=== PATIENT | female | born 1945 | race Caucasian/White ===

== ENCOUNTER 2022-06-03 09:49 | Day surgery (SDC) | payer MEDICARE ==
[2022-06-03] MEDS ORDERED: Propofol 200 MG/20 ML SDV ONE (11:20)
[2022-06-03] MEDS ORDERED: fentaNYL 100 MCG/2 ML SDV ONE (11:20)
[2022-06-03] MEDS ORDERED: Dextrose 5%-Lactated Ringers 1,000 ML IV SCH (11:30)
[2022-06-03 14:20] VITALS: BP 155/66; PULSE 49
== END 2022-06-03 14:59 | disposition home or self-care (01) ==
LOC: JP.SDS 09:49
PROVIDERS: ATTEND Surgery
DX: K31.1 Adult hypertrophic pyloric stenosis (principal); K44.9 Diaphragmatic hernia without obstruction or gangrene; I50.9 Heart failure, unspecified; I13.0 Hypertensive heart and chronic kidney disease with heart failure and stage 1 through stage 4 chronic kidney disease, or unspecified chronic kidney disease; N18.9 Chronic kidney disease, unspecified; E03.9 Hypothyroidism, unspecified; R73.03 Prediabetes; Z98.890 Other specified postprocedural states
CPT/HCPCS: 43239; 87081; J2704; J3010; J7121

== ENCOUNTER 2022-06-13 07:03 | Inpatient (IN) | payer MEDICARE ==
[~2022-06-13 07:03] MED LIST: Bupivacaine 0.5% 50 ML MDV ONE; Lidocaine 1% with EPINEPHrine 1:100,000 50 ML MDV ONE; Meropenem 500 MG SDV ONE
[2022-06-13] MEDS ORDERED: fentaNYL 250 MCG/5 ML SDV ONE ×2 (07:09→14:33)
[2022-06-13] MEDS ORDERED: Succinylcholine 200 MG/10 ML MDV ONE (07:10)
[2022-06-13] MEDS ORDERED: Dexamethasone 4 MG/ML SDV ONE (07:10)
[2022-06-13] MEDS ORDERED: Rocuronium 50 MG/5 ML Vial ONE (07:10)
[2022-06-13] MEDS ORDERED: Ondansetron 4 MG/2 ML SDV ONE (07:10)
[2022-06-13] MEDS ORDERED: Propofol 200 MG/20 ML SDV ONE (07:10)
[2022-06-13] MEDS ORDERED: Neostigmine Methylsulfate 1 MG/ML 5 ML Syringe ONE (07:10)
[2022-06-13] MEDS ORDERED: Glycopyrrolate 0.2 MG/ML 5 ML MDV ONE (07:10)
[2022-06-13] MEDS ORDERED: Acetaminophen 500 MG Tab PO ONE (07:30)
[2022-06-13] MEDS ORDERED: Celecoxib 200 MG Cap PO ONE (07:30)
[2022-06-13] MEDS ORDERED: Scopolamine 1.5 MG Transdermal Patch TOP SCH (07:30)
[2022-06-13] MEDS ORDERED: Dextrose 5%-Lactated Ringers 1,000 ML IV SCH (08:30)
[2022-06-13] MEDS ORDERED: cefOXitin 2 GM in Sodium Chloride 0.9% 50 ML IV ONE (09:00)
[2022-06-13] MEDS ORDERED: Ketamine 13 MG in Sodium Chloride 0.9% 19.87 ML IV SCH (09:15)
[2022-06-13] MEDS ORDERED: Ketamine 500 MG/5 ML MDV IV SCH (09:15)
[2022-06-13] MEDS ORDERED: diphenhydrAMINE 50 MG/ML SDV IVPUSH PRN ×2 (12:49→16:00)
[2022-06-13] MEDS ORDERED: HYDROmorphone/Normal Saline 6 MG/30 ML PCA Vial IV PRN (12:49)
[2022-06-13] MEDS ORDERED: Ondansetron 4 MG/2 ML SDV IVPUSH PRN (12:49)
[2022-06-13] MEDS ORDERED: diphenhydrAMINE 25 MG Cap PO PRN (12:49)
[2022-06-13] MEDS ORDERED: Naloxone 0.4 MG/ML SDV IVPUSH PRN (12:49)
[2022-06-13] MEDS ORDERED: Naloxone 0.4 MG/ML SDV IV PRN (14:00)
[2022-06-13] MEDS ORDERED: Labetalol 20 MG/4 ML Syringe ONE (14:23)
[2022-06-13] MEDS ORDERED: Cyclobenzaprine 10 MG Tab PO PRN (15:38)
[2022-06-13] MEDS ORDERED: hydrOXYzine HCL 100 MG/2 ML SDV IM PRN (16:00)
[2022-06-13] MEDS ORDERED: Labetalol 20 MG/4 ML Syringe IVPUSH PRN (16:00)
[2022-06-13] MEDS ORDERED: Acetaminophen 500 MG Tab PO PRN (16:00)
[2022-06-13] MEDS ORDERED: Metoclopramide 10 MG/2 ML SDV IVPUSH PRN (16:00)
[2022-06-13] MEDS ORDERED: Pantoprazole 40 MG Vial IV SCH (17:00)
[2022-06-13] MEDS: Acetaminophen 500 MG Tab PO SCH ×2 (17:20→17:54)
[2022-06-13] MEDS: cefOXitin 2 GM in Sodium Chloride 0.9% 50 ML IV SCH (17:22)
[2022-06-13] MEDS: MVI, Adult with Vitamin K 10 ML, Thiamine 200 MG, Zinc/Copper/Manganese/Selenium 1 ML i... IV SCH ×4 (17:22)
[2022-06-13] MEDS: Famotidine 20 MG/2 ML SDV IV SCH (17:22)
[2022-06-13] MEDS: Heparin Sodium 5,000 Units/ML Vial SUBCUT SCH (20:33)
[2022-06-13] MEDS: atorvaSTATin 10 MG Tab PO SCH (20:34)
[2022-06-13] MEDS: Melatonin 3 MG Tab PO SCH (20:35)
[2022-06-13] MEDS: Atenolol 25 MG Tab PO SCH (20:35)
[2022-06-13] MEDS: amLODIPine 5 MG Tab PO SCH (20:35)
[2022-06-14] MEDS: cefOXitin 2 GM in Sodium Chloride 0.9% 50 ML IV SCH ×4 (00:04→18:13)
[2022-06-14] MEDS: Acetaminophen 500 MG Tab PO SCH ×3 (00:12→18:12)
[2022-06-14] MEDS: Dextrose 5%-Lactated Ringers 1,000 ML IV SCH ×2 (01:44→12:35)
[2022-06-14] MEDS: Lactated Ringers 500 ML IV SCH ×2 (02:47→16:48)
[2022-06-14] MEDS ORDERED: Iopamidol 612 MG/ML 50 ML SDV PO STA (04:19)
[2022-06-14 05:13] LABS: ESTIMATED GFR 33 mL/min (>60)
[2022-06-14] MEDS ORDERED: Lactated Ringers 500 ML IV SCH ×2 (05:34→16:30)
[2022-06-14] MEDS: Levothyroxine 50 MCG Tab PO SCH (07:52)
[2022-06-14] MEDS ORDERED: Lactated Ringers 500 ML IV ONE ×2 (08:00→19:45)
[2022-06-14] MEDS: Allopurinol 100 MG Tab PO SCH (08:45)
[2022-06-14] MEDS: Heparin Sodium 5,000 Units/ML Vial SUBCUT SCH ×2 (08:55→20:02)
[2022-06-14] MEDS ORDERED: Celecoxib 200 MG Cap PO SCH (09:00)
[2022-06-14] MEDS: Magnesium Sulfate/Water 2 GM/50 ML BAG IV SCH ×3 (09:20→21:15)
[2022-06-14] MEDS: SCOPOLAMINE PATCH CHECK TOP SCH (13:27)
[2022-06-14] MEDS: Atenolol 25 MG Tab PO SCH ×2 (13:28→21:17)
[2022-06-14] MEDS: Famotidine 20 MG/2 ML SDV IV SCH (16:03)
[2022-06-14] MEDS: MVI, Adult with Vitamin K 10 ML, Thiamine 200 MG, Zinc/Copper/Manganese/Selenium 1 ML i... IV SCH ×4 (18:13)
[2022-06-14] MEDS: atorvaSTATin 10 MG Tab PO SCH (21:15)
[2022-06-14] MEDS: Melatonin 3 MG Tab PO SCH (21:16)
[2022-06-14] MEDS: amLODIPine 5 MG Tab PO SCH (21:16)
[2022-06-14] MEDS ORDERED: Furosemide 20 MG/2 ML VIAL IVPUSH ONE (23:12)
[2022-06-15] MEDS: cefOXitin 2 GM in Sodium Chloride 0.9% 50 ML IV SCH ×3 (00:33→11:45)
[2022-06-15] MEDS: Acetaminophen 500 MG Tab PO SCH ×3 (00:34→17:32)
[2022-06-15] MEDS: Dextrose 5%-Lactated Ringers 1,000 ML IV SCH ×2 (02:29→20:47)
[2022-06-15] MEDS: Magnesium Sulfate/Water 2 GM/50 ML BAG IV SCH ×4 (02:31→20:03)
[2022-06-15 05:04] LABS: ESTIMATED GFR 33 mL/min (>60)
[2022-06-15] MEDS: Levothyroxine 50 MCG Tab PO SCH (06:52)
[2022-06-15] MEDS ORDERED: hydrOXYzine HCl 25 MG Tab PO PRN (07:38)
[2022-06-15] MEDS: Heparin Sodium 5,000 Units/ML Vial SUBCUT SCH ×2 (07:43→20:01)
[2022-06-15] MEDS: SCOPOLAMINE PATCH CHECK TOP SCH (08:17)
[2022-06-15] MEDS: Atenolol 25 MG Tab PO SCH ×2 (08:21→20:01)
[2022-06-15] MEDS: Allopurinol 100 MG Tab PO SCH (08:26)
[2022-06-15] MEDS ORDERED: Furosemide 20 MG/2 ML VIAL IVPUSH ONE (09:00)
[2022-06-15] MEDS ORDERED: Cyanocobalamin (Vitamin B12) 1,000 MCG/ML SDV IM ONE (09:00)
[2022-06-15] MEDS: Ondansetron 4 MG/2 ML SDV IVPUSH PRN (09:55)
[2022-06-15] MEDS: HYDROmorphone 2 MG Tab PO PRN ×2 (09:55→20:10)
[2022-06-15] MEDS: Famotidine 20 MG Tab PO SCH (17:32)
[2022-06-15] MEDS: Melatonin 3 MG Tab PO SCH (20:01)
[2022-06-15] MEDS: amLODIPine 5 MG Tab PO SCH (20:02)
[2022-06-15] MEDS: atorvaSTATin 10 MG Tab PO SCH (20:03)
[2022-06-16] MEDS: Acetaminophen 500 MG Tab PO SCH ×3 (01:14→17:20)
[2022-06-16] MEDS: Magnesium Sulfate/Water 2 GM/50 ML BAG IV SCH ×4 (02:33→22:04)
[2022-06-16] MEDS: HYDROmorphone 2 MG Tab PO PRN ×2 (03:51→15:13)
[2022-06-16 05:04] LABS: ESTIMATED GFR 42 mL/min (>60)
[2022-06-16] MEDS: Dextrose 5%-Lactated Ringers 1,000 ML IV SCH ×2 (07:01→17:04)
[2022-06-16] MEDS: Levothyroxine 50 MCG Tab PO SCH (08:10)
[2022-06-16] MEDS: Heparin Sodium 5,000 Units/ML Vial SUBCUT SCH ×2 (08:11→20:32)
[2022-06-16] MEDS: Atenolol 25 MG Tab PO SCH ×2 (08:11→22:13)
[2022-06-16] MEDS: Allopurinol 100 MG Tab PO SCH (08:12)
[2022-06-16] MEDS: Bisacodyl 5 MG Tab PO SCH ×2 (08:21→22:07)
[2022-06-16] MEDS: Docusate Sodium 100 MG Cap PO SCH ×2 (08:21→22:08)
[2022-06-16] MEDS: Ondansetron 4 MG/2 ML SDV IVPUSH PRN (12:34)
[2022-06-16] MEDS: Famotidine 20 MG Tab PO SCH (17:20)
[2022-06-16] MEDS: atorvaSTATin 10 MG Tab PO SCH (22:08)
[2022-06-16] MEDS: Melatonin 3 MG Tab PO SCH (22:08)
[2022-06-16] MEDS: amLODIPine 5 MG Tab PO SCH (22:09)
[2022-06-17] MEDS: Acetaminophen 500 MG Tab PO SCH ×3 (00:42→16:39)
[2022-06-17] MEDS: Magnesium Sulfate/Water 2 GM/50 ML BAG IV SCH (03:11)
[2022-06-17] MEDS: Dextrose 5%-Lactated Ringers 1,000 ML IV SCH (03:11)
[2022-06-17 05:08] LABS: ESTIMATED GFR 58 mL/min (>60)
[2022-06-17] MEDS ORDERED: Bisacodyl 10 MG Supp RECTAL PRN (07:47)
[2022-06-17] MEDS: Docusate Sodium 100 MG Cap PO SCH ×2 (10:04→21:01)
[2022-06-17] MEDS: Levothyroxine 50 MCG Tab PO SCH (10:04)
[2022-06-17] MEDS: Heparin Sodium 5,000 Units/ML Vial SUBCUT SCH ×2 (10:04→20:59)
[2022-06-17] MEDS: Bisacodyl 5 MG Tab PO SCH ×2 (10:04→21:01)
[2022-06-17] MEDS: Atenolol 25 MG Tab PO SCH ×2 (10:05→21:04)
[2022-06-17] MEDS: Allopurinol 100 MG Tab PO SCH (10:06)
[2022-06-17] MEDS: Ondansetron 4 MG/2 ML SDV IVPUSH PRN (10:20)
[2022-06-17] MEDS ORDERED: Dextrose 5%-Lactated Ringers 1,000 ML IV SCH (12:00)
[2022-06-17] MEDS ORDERED: Furosemide 20 MG/2 ML VIAL IVPUSH ONE (12:00)
[2022-06-17] MEDS: Famotidine 20 MG Tab PO SCH (16:40)
[2022-06-17] MEDS: atorvaSTATin 10 MG Tab PO SCH (21:01)
[2022-06-17] MEDS: Melatonin 3 MG Tab PO SCH (21:01)
[2022-06-17] MEDS: amLODIPine 5 MG Tab PO SCH (21:01)
[2022-06-18] MEDS: Acetaminophen 500 MG Tab PO SCH ×2 (01:16→08:31)
[2022-06-18 07:47] VITALS: BP 144/44; PULSE 58
[2022-06-18] MEDS: Heparin Sodium 5,000 Units/ML Vial SUBCUT SCH (08:28)
[2022-06-18] MEDS: Allopurinol 100 MG Tab PO SCH (08:30)
[2022-06-18] MEDS: Bisacodyl 5 MG Tab PO SCH (08:31)
[2022-06-18] MEDS: Docusate Sodium 100 MG Cap PO SCH (08:32)
[2022-06-18] MEDS: Levothyroxine 50 MCG Tab PO SCH (08:32)
[2022-06-18] MEDS: Atenolol 25 MG Tab PO SCH (08:33)
== END 2022-06-18 09:25 | disposition home or self-care (01) | DRG 327 ==
LOC: JP.MS 07:03 → JP.SDS 07:03 → EDSTATUS 09:00 → JP.MS 15:10
PROVIDERS: ADMIT Surgery; ATTEND Surgery
PROC: 0BQT0ZZ Repair Diaphragm, Open Approach (ICD-10-PCS; principal; 2022-06-13)
PROC: 0D150ZA Bypass Esophagus to Jejunum, Open Approach (ICD-10-PCS; 2022-06-13)
PROC: 0WQF0ZZ Repair Abdominal Wall, Open Approach (ICD-10-PCS; 2022-06-13)
PROC: 0WQF0ZZ Repair Abdominal Wall, Open Approach (ICD-10-PCS; 2022-06-13)
PROC: 0DBW0ZZ Excision of Peritoneum, Open Approach (ICD-10-PCS; 2022-06-13)
PROC: 0FB20ZZ Excision of Left Lobe Liver, Open Approach (ICD-10-PCS; 2022-06-13)
PROC: 0DB40ZZ Excision of Esophagogastric Junction, Open Approach (ICD-10-PCS; 2022-06-13)
PROC: 3E0M05Z Introduction of Adhesion Barrier into Peritoneal Cavity, Open Approach (ICD-10-PCS; 2022-06-13)
DX: K44.9 Diaphragmatic hernia without obstruction or gangrene (principal); K43.0 Incisional hernia with obstruction, without gangrene; K42.0 Umbilical hernia with obstruction, without gangrene; I13.0 Hypertensive heart and chronic kidney disease with heart failure and stage 1 through stage 4 chronic kidney disease, or unspecified chronic kidney disease; E03.9 Hypothyroidism, unspecified; E78.5 Hyperlipidemia, unspecified; E66.01 Morbid (severe) obesity due to excess calories; M51.36 Other intervertebral disc degeneration, lumbar region; N18.30 Chronic kidney disease, stage 3 unspecified; I50.9 Heart failure, unspecified; I27.20 Pulmonary hypertension, unspecified; R73.03 Prediabetes; Z68.37 Body mass index [BMI] 37.0-37.9, adult; R16.0 Hepatomegaly, not elsewhere classified; K31.9 Disease of stomach and duodenum, unspecified; Z20.822 Contact with and (suspected) exposure to COVID-19
CPT/HCPCS: 36415; 36430; 74240; 74240-26; 80053; 83735; 83880; 84100; 85025; 85027; 86850; 86900; 86901; 86920; 86922; 88302; 88305; 88307; 97162-GP; 97530-GP; 97535-GP; A9270-GY; J0171; J0330; J0694; J1100; J1170; J1644; J1940; J2020; J2185; J2405; J2704; J2710; J2795; J3010; J3411; J3420; J3475; J3490; J7120; J7121; P9016; Q9967; U0002

== ENCOUNTER 2022-09-06 08:34 | Day surgery (SDC) | payer MEDICARE ==
[2022-09-06] MEDS ORDERED: Cyanocobalamin (Vitamin B12) 1,000 MCG/ML SDV IM ONE (09:30)
[2022-09-06] MEDS ORDERED: Lactated Ringers 1,000 ML IV SCH (09:30)
[2022-09-06] MEDS ORDERED: fentaNYL 50 MCG/ML SDV ONE (09:56)
[2022-09-06] MEDS ORDERED: Propofol 200 MG/20 ML SDV ONE (09:56)
[2022-09-06] MEDS ORDERED: MVI, Adult with Vitamin K 10 ML, Thiamine 200 MG, Zinc/Copper/Manganese/Selenium 1 ML i... IV ONE ×4 (10:30)
[2022-09-06] MEDS ORDERED: Dexamethasone 4 MG/ML SDV ONE (11:57)
[2022-09-06 13:31] VITALS: BP 175/61; PULSE 52
== END 2022-09-06 14:09 | disposition home or self-care (01) ==
LOC: JP.SDS 08:34
PROVIDERS: ATTEND Surgery
DX: K91.89 Other postprocedural complications and disorders of digestive system (principal); K22.2 Esophageal obstruction; I13.0 Hypertensive heart and chronic kidney disease with heart failure and stage 1 through stage 4 chronic kidney disease, or unspecified chronic kidney disease; I50.32 Chronic diastolic (congestive) heart failure; N18.30 Chronic kidney disease, stage 3 unspecified; M51.36 Other intervertebral disc degeneration, lumbar region; E03.9 Hypothyroidism, unspecified; Z98.890 Other specified postprocedural states; Z79.890 Hormone replacement therapy; Z79.899 Other long term (current) drug therapy; Z88.2 Allergy status to sulfonamides; Z88.8 Allergy status to other drugs, medicaments and biological substances
CPT/HCPCS: C1726; J1100; J2704; J3010; J3411; J3420; J7120

== ENCOUNTER 2023-06-20 08:45 | Day surgery (SDC) | payer MEDICARE ==
[2023-06-20] MEDS ORDERED: Propofol 200 MG/20 ML SDV ONE (09:44)
[2023-06-20] MEDS ORDERED: fentaNYL 50 MCG/ML SDV ONE (09:44)
[2023-06-20] MEDS ORDERED: Cyanocobalamin (Vitamin B12) 1,000 MCG/ML SDV IM ONE (10:00)
[2023-06-20] MEDS ORDERED: Lactated Ringers 1,000 ML IV ONE (10:00)
[2023-06-20] MEDS ORDERED: MVI, Adult with Vitamin K 10 ML, Thiamine 200 MG, Zinc/Copper/Manganese/Selenium 1 ML i... IV ONE ×4 (11:00)
[2023-06-20 13:45] VITALS: BP 149/64; PULSE 54
== END 2023-06-20 14:03 | disposition home or self-care (01) ==
LOC: JP.SDS 08:45
PROVIDERS: ATTEND Surgery
DX: K91.89 Other postprocedural complications and disorders of digestive system (principal); R13.10 Dysphagia, unspecified; K22.89 Other specified disease of esophagus; I27.20 Pulmonary hypertension, unspecified; E78.5 Hyperlipidemia, unspecified; I13.0 Hypertensive heart and chronic kidney disease with heart failure and stage 1 through stage 4 chronic kidney disease, or unspecified chronic kidney disease; N18.30 Chronic kidney disease, stage 3 unspecified; I50.9 Heart failure, unspecified; E03.9 Hypothyroidism, unspecified; K90.9 Intestinal malabsorption, unspecified; Z90.49 Acquired absence of other specified parts of digestive tract; Z98.0 Intestinal bypass and anastomosis status; Z88.2 Allergy status to sulfonamides; Z88.8 Allergy status to other drugs, medicaments and biological substances
CPT/HCPCS: 43235; C1726; J2704; J3010; J3411; J3420; J7120; J3490